=== PATIENT | male | born 1930 | race Caucasian/White ===

== ENCOUNTER 2018-08-21 08:33 | Inpatient (IN) | payer MEDICAID ==
[~2018-08-21] VITALS: Ht 167.6 cm; Wt 97.5 kg
[2018-08-21] VITALS (7 sets, daily range): BP systolic 111–226; BP diastolic 52–102
[~2018-08-21 08:33] MED LIST: ATOR10TA PO; DILT240C91 PO; Digoxin PO; METO100T16 PO; PRAV40TA58 PO; WARF-53 PO
[2018-08-21 08:44] LABS: BASOPHILS % 0.7 % (0.0-2.0); EOSINOPHILS % 0.9 % (0.0-5.0); HEMATOCRIT. 44.3 % (42.0-52.0); HEMOGLOBIN. 14.8 g/dL (14.0-18.0); LYMPHOCYTES % 29.5 % (20.0-50.0); MEAN CORPUSCULAR HEMOGLOBIN 32.9 pg (28.0-32.0); MEAN CORPUSCULAR VOLUME 98.7 fL (80.0-94.0); MEAN PLATELET VOLUME 9.2 fl (7.4-10.4); MONOCYTES % 5.3 % (2.0-8.0); NEUTROPHILS % 63.6 % (40.0-76.0); PLATELET 153 x1000/uL (130-400); RED BLOOD CELL COUNT 4.49 mill/uL (4.7-6.1); RED CELL DISTRIBUTION WIDTH 14.1 % (11.6-14.6)
[2018-08-21 08:50] LABS: CHLORIDE 104 mEq/L (98-107)
[2018-08-21 08:54] LABS: ETHANOL BLOOD < 10 mg/dL
[2018-08-21 08:57] LABS: LDL CHOLESTEROL 118 mg/dL (5-100)
[2018-08-21 09:30] LABS: INR 2.3; PROTHROMBIN TIME 22.7 sec (9.1-11.1)
[2018-08-21 10:25] LABS: CLARITY URINE CLEAR (CLEAR); COLOR URINE YELLOW (YELLOW); KETONES URINE NEGATIVE (NEGATIVE); LEUKOCYTE ESTERASE URINE NEGATIVE (NEGATIVE); NITRITE URINE NEGATIVE (NEGATIVE); OCCULT BLOOD URINE NEGATIVE (NEGATIVE); PH URINE 7.5 (4.5-8.0); PROTEIN URINE NEGATIVE (NEGATIVE)
[2018-08-21] MEDS ORDERED: LEVETIRACETAM 1000MG/100ML 100 ML IV ONE (10:30)
[2018-08-21 10:46] LABS: *AMPHETAMINES SCREEN URINE NEGATIVE (NEGATIVE); *BARBITURATES SCREEN URINE NEGATIVE (NEGATIVE); *BENZODIAZEPINES SCREEN URINE NEGATIVE (NEGATIVE)
[2018-08-21 10:47] LABS: *COCAINE SCREEN URINE NEGATIVE (NEGATIVE); CANNABINOID URINE SCREEN NEGATIVE (NEGATIVE); METHADONE URINE SCREEN NEGATIVE (NEGATIVE); OPIATES URINE SCREEN NEGATIVE (NEGATIVE); PHENCYCLIDINE URINE SCREEN NEGATIVE (NEGATIVE)
[2018-08-21] MEDS ORDERED: IOHEXOL-350 100 ML BOTTLE ONE (11:16)
[2018-08-21] MEDS ORDERED: AMLODIPINE 5MG TABLET PO SCH (12:00)
[2018-08-21] MEDS: HYDRALAZINE 20MG/ML VIAL IV SCH ×2 (13:47→23:47)
[2018-08-21] MEDS ORDERED: HYDRALAZINE 20MG/ML VIAL ONE (13:50)
[2018-08-21] MEDS: LORAZEPAM 2MG/ML CPJ IV PRN (14:47)
[2018-08-21] MEDS ORDERED: WARFARIN SODIUM 4MG TABLET PO SCH (18:00)
[2018-08-21] MEDS ORDERED: IPRATROPIUM/ALBUTEROL 0.5-3(2.5)MG/3ML NEB HHN PRN (19:15)
[2018-08-21] MEDS ORDERED: CLONIDINE 0.1MG TABLET PO PRN (19:15)
[2018-08-21] MEDS ORDERED: HYDRALAZINE 20MG/ML VIAL IV PRN (20:15)
[2018-08-21] MEDS: AMLODIPINE 10MG TABLET PO SCH (20:32)
[2018-08-21] MEDS: METOPROLOL TARTRATE 50MG TABLET PO SCH (20:33)
[2018-08-21] MEDS: ATORVASTATIN CALCIUM 10MG TABLET PO SCH (20:33)
[2018-08-22] VITALS (12 sets, daily range): BP systolic 108–151; BP diastolic 65–121
[2018-08-22] MEDS: LORAZEPAM 2MG/ML CPJ IV PRN (01:21)
[2018-08-22] MEDS: IPRATROPIUM/ALBUTEROL 0.5-3(2.5)MG/3ML NEB HHN SCH ×5 (01:33→21:10)
[2018-08-22] MEDS: HYDRALAZINE 20MG/ML VIAL IV SCH ×3 (05:55→17:52)
[2018-08-22 07:03] LABS: INR 1.8
[2018-08-22] MEDS: METOPROLOL TARTRATE 50MG TABLET PO SCH ×2 (09:00→20:55)
[2018-08-22] MEDS: AMLODIPINE 10MG TABLET PO SCH (09:00)
[2018-08-22] MEDS ORDERED: ENALAPRIL 1.25MG/ML VIAL 1ML IV PRN (09:30)
[2018-08-22] MEDS: SODIUM CHLORIDE 0.9% 250 ML IV NR ×4 (11:20→12:49)
[2018-08-22] MEDS: DEXT 5%/0.45% NACL 1000ML 1,000 ML IV SCH (11:20)
[2018-08-22 13:25] LABS: CHLORIDE 105 mEq/L (98-107)
[2018-08-22 13:28] LABS: BASOPHILS % 0.5 % (0.0-2.0); EOSINOPHILS % 0.1 % (0.0-5.0); HEMATOCRIT. 43.8 % (42.0-52.0); HEMOGLOBIN. 14.7 g/dL (14.0-18.0); LYMPHOCYTES % 15.6 % (20.0-50.0); MEAN CORPUSCULAR HEMOGLOBIN 33.1 pg (28.0-32.0); MEAN CORPUSCULAR VOLUME 98.5 fL (80.0-94.0); MEAN PLATELET VOLUME 10.3 fl (7.4-10.4); MONOCYTES % 6.6 % (2.0-8.0); NEUTROPHILS % 77.2 % (40.0-76.0); PLATELET 145 x1000/uL (130-400); RED BLOOD CELL COUNT 4.44 mill/uL (4.7-6.1); RED CELL DISTRIBUTION WIDTH 13.9 % (11.6-14.6)
[2018-08-22] MEDS: DILTIAZEM HCL 60MG TABLET PO SCH (17:55)
[2018-08-22] MEDS ORDERED: WARFARIN SODIUM 5MG TABLET PO NR (18:00)
[2018-08-22] MEDS: ATORVASTATIN CALCIUM 10MG TABLET PO SCH (20:55)
[2018-08-23] VITALS (12 sets, daily range): BP systolic 112–172; BP diastolic 49–105
[2018-08-23] MEDS: IPRATROPIUM/ALBUTEROL 0.5-3(2.5)MG/3ML NEB HHN SCH ×7 (00:03→23:49)
[2018-08-23] MEDS: DILTIAZEM HCL 60MG TABLET PO SCH ×4 (00:32→17:21)
[2018-08-23] MEDS: HYDRALAZINE 20MG/ML VIAL IV SCH ×4 (00:33→17:38)
[2018-08-23] MEDS: DEXT 5%/0.45% NACL 1000ML 1,000 ML IV SCH ×2 (00:39→13:03)
[2018-08-23 07:17] LABS: INR 1.6; PROTHROMBIN TIME 15.8 sec (9.1-11.1)
[2018-08-23 07:18] LABS: BASOPHILS % 0.5 % (0.0-2.0); EOSINOPHILS % 0.2 % (0.0-5.0); HEMATOCRIT. 40.8 % (42.0-52.0); HEMOGLOBIN. 13.7 g/dL (14.0-18.0); LYMPHOCYTES % 14.1 % (20.0-50.0); MEAN CORPUSCULAR VOLUME 98.5 fL (80.0-94.0); MEAN PLATELET VOLUME 9.8 fl (7.4-10.4); MONOCYTES % 7.6 % (2.0-8.0); NEUTROPHILS % 77.6 % (40.0-76.0); PLATELET 148 x1000/uL (130-400); RED BLOOD CELL COUNT 4.14 mill/uL (4.7-6.1); RED CELL DISTRIBUTION WIDTH 14.1 % (11.6-14.6)
[2018-08-23 07:42] LABS: CHLORIDE 106 mEq/L (98-107)
[2018-08-23] MEDS: METOPROLOL TARTRATE 50MG TABLET PO SCH (09:00)
[2018-08-23] MEDS ORDERED: POTASSIUM CHLORIDE 20MEQ TABLET SR PO NR (10:00)
[2018-08-23] MEDS ORDERED: DIGOXIN 500MCG/2ML AMP IV NR (10:00)
[2018-08-23] MEDS ORDERED: POTASSIUM CHLORIDE INJ 40 MEQ in DEXT 5% WATER 250 ML IV NR (13:00)
[2018-08-23 13:02] LABS: BG BASE EXCESS 1.3 mmol/L (-2.0-2.0); BG CARBOXYHEMOGLOBIN 1.1 % (0.5-1.5); BG DEOXYHEMOGLOBIN 7.3 % (0.0-5.0); BG FRACTION INSPIRED OXYGEN 21; BG HCO3 ACT 23.4 mmol/L (22.0-26.0); BG METHEMOGLOBIN 0.3 % (0.0-1.5); BG OXYGEN SATURATION 92.6 % (92.0-98.5); BG OXYHEMOGLOBIN 91.3 % (94.0-97.0); BG PCO2 30.3 mmHg (35.0-45.0); BG PH 7.506 (7.350-7.450); BG PO2 61.5 mmHg (75.0-100.0); BG SAMPLE SITE LEFT RADIAL; BG TOTAL HEMOGLOBIN 14.7 g/dL (12.0-18.0); BG VENT MODE ROOM AIR
[2018-08-23] MEDS: DILTIAZEM HCL 5MG/ML 5ML VIAL IV PRN ×3 (13:04→23:07)
[2018-08-23] MEDS ORDERED: ENOXAPARIN 100MG/ML SYR SUBCUT SCH (14:00)
[2018-08-23] MEDS ORDERED: PHYTONADIONE 10MG/ML AMP SUBCUT NR (16:30)
[2018-08-23] MEDS ORDERED: WARFARIN SODIUM 5MG TABLET PO NR (18:00)
[2018-08-23] MEDS: METOPROLOL TARTRATE 100MG TABLET PO SCH (20:49)
[2018-08-23] MEDS: ATORVASTATIN CALCIUM 10MG TABLET PO SCH (20:49)
[2018-08-24] VITALS (8 sets, daily range): BP systolic 110–159; BP diastolic 56–80
[2018-08-24] MEDS: DEXT 5%/0.45% NACL 1000ML 1,000 ML IV SCH ×2 (02:56→15:01)
[2018-08-24] MEDS: IPRATROPIUM/ALBUTEROL 0.5-3(2.5)MG/3ML NEB HHN SCH ×5 (03:55→22:08)
[2018-08-24] MEDS: DILTIAZEM HCL 5MG/ML 5ML VIAL IV PRN ×4 (05:11→14:54)
[2018-08-24] MEDS: DILTIAZEM HCL 60MG TABLET PO SCH ×3 (06:00→11:38)
[2018-08-24 06:17] LABS: BASOPHILS % 0.3 % (0.0-2.0); EOSINOPHILS % 0.3 % (0.0-5.0); HEMATOCRIT. 37.7 % (42.0-52.0); LYMPHOCYTES % 13.6 % (20.0-50.0); MEAN CORPUSCULAR HEMOGLOBIN 33.6 pg (28.0-32.0); MEAN CORPUSCULAR VOLUME 97.6 fL (80.0-94.0); MEAN PLATELET VOLUME 9.7 fl (7.4-10.4); MONOCYTES % 9.8 % (2.0-8.0); PLATELET 130 x1000/uL (130-400); RED BLOOD CELL COUNT 3.87 mill/uL (4.7-6.1); RED CELL DISTRIBUTION WIDTH 14.2 % (11.6-14.6)
[2018-08-24 06:33] LABS: CHLORIDE 106 mEq/L (98-107)
[2018-08-24] MEDS: HYDRALAZINE 20MG/ML VIAL IV SCH ×4 (06:45→18:04)
[2018-08-24 06:55] LABS: INR 1.3; PARTIAL THROMBOPLASTIN TIME 32.3 sec (23.4-31.0); PROTHROMBIN TIME 12.9 sec (9.1-11.1)
[2018-08-24] MEDS: METOPROLOL TARTRATE 100MG TABLET PO SCH ×3 (08:44→21:28)
[2018-08-24] MEDS ORDERED: PANTOPRAZOLE SODIUM 40 MG/VIAL IV SCH (09:00)
[2018-08-24] MEDS ORDERED: POTASSIUM CHLORIDE INJ 40 MEQ in DEXT 5% WATER 250 ML IV NR (11:30)
[2018-08-24] MEDS ORDERED: CEFAZOLIN 1000MG PREMIX 50 ML IV ONE ×2 (11:44→11:45)
[2018-08-24] MEDS ORDERED: MIDAZOLAM HCL 5 MG/5 ML VIAL ONE (11:44)
[2018-08-24] MEDS ORDERED: FENTANYL CITRATE/PF 50MCG/ML 2ML VIAL ONE (11:45)
[2018-08-24] MEDS ORDERED: MIDAZOLAM HCL 5 MG/5 ML VIAL IV PRN (12:13)
[2018-08-24 16:50] LABS: BG BASE EXCESS -0.2 mmol/L (-2.0-2.0); BG CARBOXYHEMOGLOBIN 0.7 % (0.5-1.5); BG FRACTION INSPIRED OXYGEN 28; BG HCO3 ACT 22.7 mmol/L (22.0-26.0); BG METHEMOGLOBIN 0.3 % (0.0-1.5); BG PCO2 32.1 mmHg (35.0-45.0); BG PH 7.468 (7.350-7.450); BG SAMPLE SITE RIGHT BRACHIAL; BG VENT MODE NASAL CANNULA
[2018-08-24] MEDS: CEFEPIME 1,000 MG in DEXTROSE 5% WATER 50 ML IV SCH (18:02)
[2018-08-24] MEDS: ENOXAPARIN 100MG/ML SYR SUBCUT SCH (18:03)
[2018-08-24] MEDS: DILTIAZEM HCL 90MG TABLET PO SCH (21:28)
[2018-08-24] MEDS: ATORVASTATIN CALCIUM 10MG TABLET PO SCH (21:28)
[2018-08-24] MEDS: METRONIDAZOLE 500 MG PREMIX 100 ML IV SCH (21:28)
[2018-08-25] VITALS (13 sets, daily range): BP systolic 103–145; BP diastolic 27–91
[2018-08-25] MEDS: HYDRALAZINE 20MG/ML VIAL IV SCH ×4 (00:35→18:03)
[2018-08-25] MEDS: IPRATROPIUM/ALBUTEROL 0.5-3(2.5)MG/3ML NEB HHN SCH ×5 (02:12→21:17)
[2018-08-25] MEDS: METRONIDAZOLE 500 MG PREMIX 100 ML IV SCH (05:30)
[2018-08-25] MEDS: CEFEPIME 1,000 MG in DEXTROSE 5% WATER 50 ML IV SCH (05:30)
[2018-08-25] MEDS: DILTIAZEM HCL 90MG TABLET PO SCH ×3 (05:31→21:36)
[2018-08-25] MEDS: ENOXAPARIN 100MG/ML SYR SUBCUT SCH ×2 (05:32→18:05)
[2018-08-25] MEDS: DEXT 5%/0.45% NACL 1000ML 1,000 ML IV SCH ×2 (05:32→18:06)
[2018-08-25] MEDS: METOPROLOL TARTRATE 100MG TABLET PO SCH ×2 (10:23→21:36)
[2018-08-25 10:30] LABS: BG BASE EXCESS -0.6 mmol/L (-2.0-2.0); BG CARBOXYHEMOGLOBIN 0.8 % (0.5-1.5); BG DEOXYHEMOGLOBIN 4.3 % (0.0-5.0); BG FRACTION INSPIRED OXYGEN 28; BG HCO3 ACT 23.1 mmol/L (22.0-26.0); BG METHEMOGLOBIN 0.2 % (0.0-1.5); BG OXYGEN SATURATION 95.7 % (92.0-98.5); BG OXYHEMOGLOBIN 94.7 % (94.0-97.0); BG PCO2 35.1 mmHg (35.0-45.0); BG PH 7.436 (7.350-7.450); BG PO2 81.2 mmHg (75.0-100.0); BG SAMPLE SITE RIGHT BRACHIAL; BG TOTAL HEMOGLOBIN 13.1 g/dL (12.0-18.0); BG VENT MODE NASAL CANNULA
[2018-08-25] MEDS ORDERED: IPRA3AMP9 HHN (12:31)
[2018-08-25] MEDS ORDERED: DILT90TA2 PO (12:31)
[2018-08-25] MEDS ORDERED: ATOR10TA PO (12:31)
[2018-08-25] MEDS ORDERED: METO100T16 PO (12:31)
[2018-08-25] MEDS ORDERED: CEFE1FRO2 IV (12:37)
[2018-08-25] MEDS ORDERED: FUROSEMIDE 40MG/4ML VIAL IVP NR (13:30)
[2018-08-25] MEDS: ACETYLCYSTEINE 100MG/ML 10% VIAL 4ML INH SCH (17:11)
[2018-08-25] MEDS ORDERED: CEFTRIAXONE 1 G PREMIX 50 ML IV SCH (18:00)
[2018-08-25] MEDS ORDERED: WARFARIN SODIUM 5MG TABLET PO SCH (18:00)
[2018-08-25] MEDS: ATORVASTATIN CALCIUM 10MG TABLET PO SCH (21:35)
[2018-08-25] MEDS ORDERED: ACETAMINOPHEN 325MG TABLET PO PRN (22:45)
[2018-08-26] VITALS (12 sets, daily range): BP systolic 113–178; BP diastolic 57–133
[2018-08-26] MEDS: ACETYLCYSTEINE 100MG/ML 10% VIAL 4ML INH SCH (00:52)
[2018-08-26] MEDS: IPRATROPIUM/ALBUTEROL 0.5-3(2.5)MG/3ML NEB HHN SCH ×2 (00:52→04:45)
[2018-08-26] MEDS: HYDRALAZINE 20MG/ML VIAL IV SCH ×2 (05:45)
[2018-08-26] MEDS: ENOXAPARIN 100MG/ML SYR SUBCUT SCH (05:45)
[2018-08-26] MEDS: DILTIAZEM HCL 90MG TABLET PO SCH (05:45)
[2018-08-26] MEDS ORDERED: FUROSEMIDE 20MG/2ML VIAL IVP SCH (09:00)
[2018-08-26] MEDS: METOPROLOL TARTRATE 100MG TABLET PO SCH (09:00)
[2018-08-26 11:43] LABS: INR 1.1
[2018-08-26] MEDS ORDERED: MORPHINE SULFATE 4 MG/ML CPJ (NOT FOR IM USE) IV PRN (12:30)
[2018-08-27] VITALS (10 sets, daily range): BP systolic 104–154; BP diastolic 73–102
[2018-08-27 06:21] LABS: INR 1.1; PROTHROMBIN TIME 10.7 sec (9.1-11.1)
[2018-08-27] MEDS: LORAZEPAM 2MG/ML CPJ IV PRN ×2 (12:33→17:07)
[2018-08-27] MEDS ORDERED: MORPHINE SULFATE 250 MG in DEXT 5% WATER 240 ML IV PRN (13:30)
[2018-08-28] VITALS: BP 85/60
== END 2018-08-28 03:27 | disposition expired | DRG 720 ==
LOC: ER 08:33 → 5EST 10:28 → EDBEDREQ 10:32 → ENRESERV 11:02 → 5EST 08-24 07:29 → 6EST 08-27 15:03
PROVIDERS: ADMIT Internal Medicine; ATTEND Family Medicine
PROC: 0DJ08ZZ Inspection of Upper Intestinal Tract, Via Natural or Artificial Opening Endoscopic (ICD-10-PCS; principal; 2018-08-24)
DX: A41.9 Sepsis, unspecified organism (principal); J69.0 Pneumonitis due to inhalation of food and vomit; J96.00 Acute respiratory failure, unspecified whether with hypoxia or hypercapnia; I63.531 Cerebral infarction due to unspecified occlusion or stenosis of right posterior cerebral artery; G93.41 Metabolic encephalopathy; E46 Unspecified protein-calorie malnutrition; R13.12 Dysphagia, oropharyngeal phase; Z51.5 Encounter for palliative care; Z66 Do not resuscitate; D68.9 Coagulation defect, unspecified; I48.2 Chronic atrial fibrillation; I07.1 Rheumatic tricuspid insufficiency; I48.91 Unspecified atrial fibrillation; E66.9 Obesity, unspecified; E78.5 Hyperlipidemia, unspecified; E87.6 Hypokalemia; I10 Essential (primary) hypertension; H54.8 Legal blindness, as defined in USA; H91.90 Unspecified hearing loss, unspecified ear; K29.70 Gastritis, unspecified, without bleeding; Z79.01 Long term (current) use of anticoagulants; Z86.73 Personal history of transient ischemic attack (TIA), and cerebral infarction without residual deficits; Z93.1 Gastrostomy status; T45.515A Adverse effect of anticoagulants, initial encounter; Y92.89 Other specified places as the place of occurrence of the external cause; Z68.34 Body mass index [BMI] 34.0-34.9, adult
CPT/HCPCS: 36415; 36600; 70496; 70551; 71045; 80048; 80061; 80305; 82375; 82805; 83721; 83880; 84443; 84484; 93005; 93306; 93880; 94640; 96365; 97166; 99285; A6261; C9113; G0482; J0360; J0690; J0692; J0696; J1160; J1650; J1940; J1953; J2060; J2250; J2270; J3010; J3430; J3480; J3490; J7050; J7060; J7608; J7620; Q9967; A4315